=== PATIENT | female | born 1955 | race Caucasian/White ===

== ENCOUNTER 2016-03-29 23:08 | Emergency (ER) | payer MEDICAID, OTHER ==
[~2016-03-29] VITALS: Ht 154.9 cm; Wt 72.3 kg
[2016-03-29 23:52] VITALS: Ht 154.9 cm; Wt 72.3 kg
[2016-03-29 23:56] LABS: HEMATOCRIT 41.9 % (37.0-47.0); HEMOGLOBIN 14.4 g/dl (12.0-16.0); MEAN CORPUSCULAR HEMOGLOBIN 29.1 pg (29.0-33.0); MEAN CORPUSCULAR HGB CONC 34.3 g/dl (32.0-37.0); MEAN PLATELET VOLUME 9.6 fl (7.4-10.4); PLATELET COUNT 355 10^3/UL (140-440); RED BLOOD COUNT 4.94 10^6/ul (4.20-5.40); RED CELL DISTRIBUTION WIDTH 13.1 % (11.5-14.5); WHITE BLOOD COUNT 10.4 10^3/ul (4.8-10.8)
[2016-03-30 00:04] LABS: CONDITION 1; LH ANALYZER COMMENTS 1; SUSPECT 1; UNCORRECTED WBC 11.2 10^3/ul (4.8-10.8)
[2016-03-30 00:10] LABS: INR 0.79; PT RATIO 0.9
[2016-03-30 00:29] LABS: EOSINOPHILS # 0.1 10^3/ul (0.0-0.5); LYMPHOCYTES # 4.7 10^3/ul (0.8-2.9); MONOCYTE # 0.6 10^3/ul (0.3-0.9)
--- NOTE | 2016-03-30 00:51 | RADRPT ---
PROCEDURE: CHEST - 1 VIEW CLINICAL INDICATION: 61-year-old female with chest pain. TECHNIQUE: A single frontal AP supine view of the chest was performed portably. The images were r eviewed on a PACS workstation. COMPARISON: None. FINDINGS: The cardiomediastinal silhouette is within normal limits. There is a shallow inspiration. There is mild bibasilar subsegmental atelectasis. There is no evidence for an infiltrate. There is no evid ence for congestive heart failure. There is no evidence for pneumothorax. The osseous structures are intact. IMPRESSION: Shallow inspiration with mild bibasilar subsegmental atelectasis. .Roland Aldridge MD, Date Time Electronically viewed and signed by .Roland Aldridge MD, MD on 03/30/2016 00:51 .M/
[2016-03-30 00:52] LABS: ALBUMIN 4.1 g/dl (3.3-4.9); CHLORIDE 103 mmol/L (97-110)
[2016-03-30 00:53] LABS: POTASSIUM 4.3 mmol/L (3.5-5.1); SODIUM 143 mmol/L (135-144)
[2016-03-30 00:55] LABS: ANION GAP 18 (8-16); ASPARTATE AMINO TRANSFERASE 28 IU/L (15-46); BILIRUBIN,INDIRECT 0.1 mg/dl (0-1.1); BILIRUBIN,TOTAL 0.1 mg/dl (0.2-1.3); BLOOD UREA NITROGEN 18 mg/dl (7-20); CARBON DIOXIDE 26 mmol/L (21-31); CREATININE 0.74 mg/dl (0.44-1.00); TOTAL PROTEIN 8.2 g/dl (6.1-8.1)
[2016-03-30 00:56] LABS: ALANINE AMINOTRANSFERASE 27 IU/L (13-69); ALKALINE PHOSPHATASE 156 IU/L (42-121); CALCIUM 9.2 mg/dl (8.4-10.2); GLUCOSE 106 mg/dl (70-220)
[2016-03-30 01:04] LABS: B-TYPE NATRIURETIC PEPTIDE 41 PG/ML (0-125)
[2016-03-30 01:18] LABS: TROPONIN-I < 0.010 ng/ml (0.00-0.12)
[2016-03-30] MEDS ORDERED: CLON-379 PO (01:28)
--- NOTE | 2016-03-30 01:28 | ERD ---
ER Documentation Chief Complaint Date/Time DATE: 03/30/16 TIME: 01:27 Chief Complaint weakness x 1 hr, pt diaphoretic c/o high bp HPI This is a 61-year-old female complains of weakness for the past hour. She has been diaphoretic with elevated blood pressures. She denies any fevers or chills. She denies any focal neurologic complaints. She denies any chest pain. She denies any current problems. ROS All systems reviewed and are negative except as per history of present illness. Allergies Allergies: Coded Allergies: No Known Allergy (Unverified , 03/29/16) PMhx/Soc Medical and Surgical Hx: pt denies Surgical Hx History of Surgery: No Anesthesia Reaction: No Hx Neurological Disorder: No Hx Respiratory Disorders: No Hx Cardiac Disorders: Yes (htn) Hx Psychiatric Problems: No Hx Miscellaneous Medical Probl: No Hx Alcohol Use: No Hx Substance Use: No Hx Tobacco Use: No Smoking Status: Never smoker Physical Exam Vitals Vital Signs Date Time Temp Pulse Resp B/P Pulse Ox O2 Delivery O2 Flow Rate FiO2 03/29/16 23:52 98.0 88 16 167/80 99 Physical Exam Const: [] Head: Atraumatic Eyes: Normal Conjunctiva ENT: Normal External Ears, Nose and Mouth. Neck: Full range of motion..~ No meningismus. Resp: Clear to auscultation bilaterally Cardio: Regular rate and rhythm, no murmurs Abd: Soft, non tender, non distended. Normal bowel sounds Skin: No petechiae or rashes Back: No midline or flank tenderness Ext: No cyanosis, or edema Neur: Awake and alert Psych: Normal Mood and Affect Result Diagram: 03/29/16 2334 03/29/16 0025 Results 24 hrs Laboratory Tests Test 03/29/16 00:25 03/29/16 23:34 03/29/16 23:55 Alanine Aminotransferase (ALT/SGPT) 27IU/L Albumin 4.1g/dl Albumin/Globulin Ratio 1.00 Alkaline Phosphatase 156IU/L Anion Gap 18 Aspartate Amino Transf (AST/SGOT) 28IU/L B-Type Natriuretic Peptide 41PG/ML Blood Urea Nitrogen 18mg/dl Calcium Level 9.2mg/dl Carbon Dioxide Level 26mmol/L Chloride Level 103mmol/L Creatinine 0.74mg/dl Direct Bilirubin 0.00mg/dl Globulin 4.10g/dl Glucose Level 106mg/dl Indirect Bilirubin 0.1mg/dl Potassium Level 4.3mmol/L Sodium Level 143mmol/L Total Bilirubin 0.1mg/dl Total Protein 8.2g/dl Troponin I < 0.010ng/ml Differential Comment MANUAL DIFF Eosinophils # 0.110^3/ul Eosinophils % 1.0% Hematocrit 41.9% Hemoglobin 14.4g/dl Lymphocytes # 4.710^3/ul Lymphocytes % 45.0% Mean Corpuscular Hemoglobin 29.1pg Mean Corpuscular Hemoglobin Concent 34.3g/dl Mean Corpuscular Volume 85.0fl Mean Platelet Volume 9.6fl Monocytes # 0.610^3/ul Monocytes % 6.0% Neutrophils # 5.010^3/ul Neutrophils % 48.0% Platelet Count 07372^3/UL Red Blood Count 4.9410^6/ul Red Cell Distribution Width 13.1% White Blood Count 10.410^3/ul Activated Partial Thromboplast Time 20.0Sec INR International Normalized Ratio 0.79 Prothrombin Time 11.0Sec Prothrombin Time Ratio 0.9 Procedures/MDM EKG: Rate/Rhythm: Normal Sinus Rhythm QRS, ST, T-waves: No changes consistent w/ acute ischemia Impression: No evidence of ischemia or arrhythmia Chest X-ray 1V Interpreted by me: Soft Tissue: No acute abnormalities Bones: No acute abnormalities Mediastinum/Cardiac Silhouette/Lungs: No acute abnormalities Patient's blood pressure was elevated (>120/80) but appears stable without evidence of hypertension emergency or urgency. The patient was counseled about the risks of hypertension and urged to pursue outpatient monitoring and therapy within a week with their primary care physician. Departure Diagnosis: Primary Impression: Hypertension Hypertension type: essential hypertension Qualified Code: I10 - Essential hypertension Additional Impression: Hypertensive crisis Condition: Stable LELAND GALDAMEZArgenis Mar 30, 2016 01:28
[2016-03-30 02:17] VITALS: BP 165/71; PULSE 77; RESP 16; TEMP 98
== END 2016-03-30 02:18 | disposition home or self-care (01) ==
LOC: E/R 23:08
DX: I10 Essential (primary) hypertension (principal); I16.9 Hypertensive crisis, unspecified; R40.2142 Coma scale, eyes open, spontaneous, at arrival to emergency department; R40.2252 Coma scale, best verbal response, oriented, at arrival to emergency department; R40.2362 Coma scale, best motor response, obeys commands, at arrival to emergency department; R07.9 Chest pain, unspecified
CPT/HCPCS: 71010; 80053; 83880; 84484; 85025; 85610; 85730; 93005; Z7502